=== PATIENT | female | born 1960 | race African-American/Black ===

== ENCOUNTER 2018-09-18 17:08 | Emergency (ER) | payer BC ==
[~2018-09-18] VITALS: Ht 172.7 cm; Wt 88.0 kg
[2018-09-18] MEDS ORDERED: HYDROCODONE/ACETAMINOPHEN 5/325MG TABLET PO ONE (22:45)
[2018-09-19 01:05] VITALS: BP 153/67
== END 2018-09-19 01:07 | disposition home or self-care (01) ==
LOC: ER 17:08
DX: M25.571 Pain in right ankle and joints of right foot (principal); W18.39XA Other fall on same level, initial encounter; Y93.89 Activity, other specified; Y92.89 Other specified places as the place of occurrence of the external cause; Y99.8 Other external cause status
CPT/HCPCS: 73610; 73630; 99283